=== PATIENT | female | born 1985 | race Asian ===

== ENCOUNTER 2016-05-24 03:33 | Emergency (ER) | payer MEDICARE ==
[~2016-05-24] VITALS: Ht 162.6 cm; Wt 59.0 kg
[2016-05-24 06:40] VITALS: BP 138/83
== END 2016-05-24 09:12 | disposition home or self-care (01) ==
LOC: ER 07:35
DX: S20.212A Contusion of left front wall of thorax, initial encounter (principal); M79.641 Pain in right hand; R91.8 Other nonspecific abnormal finding of lung field; V89.2XXA Person injured in unspecified motor-vehicle accident, traffic, initial encounter; Y93.89 Activity, other specified; Y92.411 Interstate highway as the place of occurrence of the external cause
CPT/HCPCS: 71010; 73130; 81025; 99284